=== PATIENT | female | born 1980 | race Caucasian/White ===

== ENCOUNTER 2016-10-13 10:23 | Emergency (ER) | payer OTHER | END 2016-10-13 12:35 | disposition home or self-care (01) | LOC: ER 10:23 | DX: F41.0 Panic disorder [episodic paroxysmal anxiety] (principal); F17.200 Nicotine dependence, unspecified, uncomplicated; Z88.0 Allergy status to penicillin | CPT/HCPCS: 36415; 96374; J2060 ==